=== PATIENT | female | born 1985 | race Caucasian/White ===

== ENCOUNTER 2017-02-01 17:39 | Emergency (ER) | payer OTHER ==
[~2017-02-01] VITALS: Ht 162.6 cm; Wt 71.9 kg
[2017-02-01 20:30] LABS: BASOPHIL % 1.6 % (0-2); PLATELET COUNT 307 x10^3mcL (130-400)
[2017-02-01 20:41] LABS: CALCIUM 9.2 mg/dL (8.5-10.1); CARBON DIOXIDE 25.5 mmol/L (21-32); CHLORIDE SERUM 101 mmol/L (98-107); CREATININE SERUM 0.7 mg/dL (0.6-1.0); GFR1 > 60 mL/min; GLUCOSE SERUM 98 mg/dL (74-106); POTASSIUM SERUM 3.5 mmol/L (3.5-5.1); SODIUM SERUM 138 mmol/L (136-145)
[2017-02-01 20:46] LABS: ALBUMIN 3.8 g/dL (3.4-5.0); ALKALINE PHOSPHATASE 106 U/L (46-116); ALT/SGPT 18 U/L (14-59); AST/SGOT 9 U/L (15-37); BILIRUBIN TOTAL 0.6 mg/dL (0.20-1.00)
[2017-02-01 20:48] LABS: TOTAL PROTEIN, SERUM 8.3 g/dL (6.4-8.2)
[2017-02-02 00:33] VITALS: BP 122/57
== END 2017-02-02 00:30 | disposition short-term general hospital (02) ==
LOC: ED 17:39
PROVIDERS: Emergency Medicine
DX: K12.2 Cellulitis and abscess of mouth (principal); J45.909 Unspecified asthma, uncomplicated
CPT/HCPCS: J0295; J2270; J2405; J3490; J7030

== ENCOUNTER 2017-09-26 07:25 | Emergency (ER) | payer OTHER ==
[~2017-09-26] VITALS: Ht 162.6 cm; Wt 74.4 kg
[2017-09-26 08:31] VITALS: BP 125/67
== END 2017-09-26 08:31 | disposition home or self-care (01) ==
LOC: ED 07:25
DX: N12 Tubulo-interstitial nephritis, not specified as acute or chronic (principal); J45.909 Unspecified asthma, uncomplicated
CPT/HCPCS: J1885

== ENCOUNTER 2018-03-01 15:10 | Emergency (ER) | payer OTHER ==
[~2018-03-01] VITALS: Ht 162.6 cm; Wt 70.1 kg
[2018-03-01 15:23] VITALS: Ht 162.6 cm; Wt 70.1 kg
[2018-03-01 18:18] VITALS: BP 118/70
== END 2018-03-01 18:20 | disposition home or self-care (01) ==
LOC: ED 15:10
DX: R10.10 Upper abdominal pain, unspecified (principal); J45.909 Unspecified asthma, uncomplicated; K21.9 Gastro-esophageal reflux disease without esophagitis; Z88.1 Allergy status to other antibiotic agents
CPT/HCPCS: J1885; Q0092; Q0162

== ENCOUNTER 2018-04-01 12:35 | Emergency (ER) | payer OTHER ==
[~2018-04-01] VITALS: Ht 162.6 cm; Wt 68.9 kg
[2018-04-01 12:39] VITALS: Ht 162.6 cm; Wt 68.9 kg
[2018-04-01 15:40] VITALS: BP 119/88
== END 2018-04-01 15:40 | disposition home or self-care (01) ==
LOC: ED 12:35
DX: R10.30 Lower abdominal pain, unspecified (principal); R10.32 Left lower quadrant pain; R11.0 Nausea; J45.909 Unspecified asthma, uncomplicated; K21.9 Gastro-esophageal reflux disease without esophagitis; Z88.1 Allergy status to other antibiotic agents

== ENCOUNTER 2018-05-04 05:51 | Emergency (ER) | payer OTHER ==
[~2018-05-04] VITALS: Ht 162.6 cm; Wt 66.7 kg
[2018-05-04 06:01] VITALS: Ht 162.6 cm; Wt 66.7 kg
[2018-05-04 06:53] LABS: BASOPHIL % 0.4 % (0-2); PLATELET COUNT 202 x10^3mcL (130-400)
[2018-05-04 07:02] LABS: CALCIUM 9.3 mg/dL (8.5-10.1); CARBON DIOXIDE 24.6 mmol/L (21-32); CHLORIDE SERUM 103 mmol/L (98-107); CREATININE SERUM 0.8 mg/dL (0.6-1.0); GFR1 > 60 mL/min; GLUCOSE SERUM 110 mg/dL (74-106); POTASSIUM SERUM 3.7 mmol/L (3.5-5.1); SODIUM SERUM 139 mmol/L (136-145)
[2018-05-04 07:06] LABS: ALBUMIN 4.1 g/dL (3.4-5.0); ALKALINE PHOSPHATASE 83 U/L (46-116); ALT/SGPT 22 U/L (14-59); AST/SGOT 16 U/L (15-37); BILIRUBIN TOTAL 0.45 mg/dL (0.20-1.00); LIPASE 84 IU/L (73-393); TOTAL PROTEIN, SERUM 7.9 g/dL (6.4-8.2)
[2018-05-04 07:28] LABS: UA SPECIFIC GRAVITY <=1.005 (1.005-1.035); microscopic required? YES; urine erythrocyte 2+ (NEGATIVE)
[2018-05-04 09:25] VITALS: BP 107/64
== END 2018-05-04 09:25 | disposition home or self-care (01) ==
LOC: ED 05:51
PROVIDERS: Emergency Medicine
DX: N39.0 Urinary tract infection, site not specified (principal); K21.9 Gastro-esophageal reflux disease without esophagitis; J45.909 Unspecified asthma, uncomplicated; Z88.1 Allergy status to other antibiotic agents
CPT/HCPCS: C9113; Q0092; Q0162

== ENCOUNTER 2018-05-06 09:23 | Emergency (ER) | payer OTHER ==
[~2018-05-06] VITALS: Ht 162.6 cm; Wt 61.2 kg
[2018-05-06 12:08] LABS: microscopic required? YES; urine erythrocyte 2+ (NEGATIVE)
[2018-05-06 12:51] LABS: BASOPHIL % 0.3 % (0-2); PLATELET COUNT 195 x10^3mcL (130-400); RED CELL DISTRIBUTION WIDTH 14.2 % (11.5-14.5)
[2018-05-06 14:06] LABS: CALCIUM 9.2 mg/dL (8.5-10.1); CARBON DIOXIDE 24.6 mmol/L (21-32); CHLORIDE SERUM 104 mmol/L (98-107); CREATININE SERUM 0.8 mg/dL (0.6-1.0); GFR1 > 60 mL/min; GLUCOSE SERUM 86 mg/dL (74-106); POTASSIUM SERUM 3.6 mmol/L (3.5-5.1); SODIUM SERUM 137 mmol/L (136-145)
[2018-05-06 14:19] LABS: ALBUMIN 4.3 g/dL (3.4-5.0); ALKALINE PHOSPHATASE 85 U/L (46-116); ALT/SGPT 23 U/L (14-59); AST/SGOT 14 U/L (15-37); BILIRUBIN TOTAL 0.49 mg/dL (0.20-1.00); C REACTIVE PROTEIN 0.3 mg/dL (<=0.9); TOTAL PROTEIN, SERUM 8.2 g/dL (6.4-8.2)
[2018-05-06 14:27] VITALS: BP 126/72
[2018-05-06 15:14] LABS: ERYTHROCYTE SED RATE 17 mm/hr (0-20)
== END 2018-05-06 16:33 | disposition home or self-care (01) ==
LOC: ED 09:23
PROVIDERS: Specialist
DX: N39.0 Urinary tract infection, site not specified (principal); R10.11 Right upper quadrant pain; J45.909 Unspecified asthma, uncomplicated; Z88.1 Allergy status to other antibiotic agents
CPT/HCPCS: 83880; J1885; J2405; J3010; J7030; Q0092; Q9967

== ENCOUNTER 2018-05-21 00:38 | Emergency (ER) | payer SELFPAY ==
[~2018-05-21] VITALS: Ht 162.6 cm; Wt 65.3 kg
[2018-05-21 00:49] VITALS: Ht 162.6 cm; Wt 65.3 kg
[2018-05-21 02:23] LABS: microscopic required? NO
[2018-05-21 02:38] LABS: UA SPECIFIC GRAVITY 1.015 (1.005-1.035); urine erythrocyte NEGATIVE (NEGATIVE)
[2018-05-21 05:51] VITALS: BP 109/78
== END 2018-05-21 00:52 | disposition home or self-care (01) ==
LOC: ED 00:38
PROVIDERS: Emergency Medicine
DX: N76.0 Acute vaginitis (principal); J45.909 Unspecified asthma, uncomplicated; Z88.1 Allergy status to other antibiotic agents
CPT/HCPCS: 87491; 87591; Q0162

== ENCOUNTER 2018-08-21 11:26 | Emergency (ER) | payer OTHER ==
[~2018-08-21] VITALS: Ht 162.6 cm; Wt 61.7 kg
[2018-08-21 11:34] VITALS: Ht 162.6 cm; Wt 61.7 kg
[2018-08-21 12:22] VITALS: BP 123/86
== END 2018-08-21 12:22 | disposition home or self-care (01) ==
LOC: ED 11:26
DX: R10.9 Unspecified abdominal pain (principal); R50.9 Fever, unspecified; R11.0 Nausea; J45.909 Unspecified asthma, uncomplicated; N83.209 Unspecified ovarian cyst, unspecified side; K21.9 Gastro-esophageal reflux disease without esophagitis; Z90.6 Acquired absence of other parts of urinary tract; Z88.1 Allergy status to other antibiotic agents
CPT/HCPCS: J1885; Q0162

== ENCOUNTER 2018-08-25 13:06 | Emergency (ER) | payer OTHER ==
[~2018-08-25] VITALS: Ht 162.6 cm; Wt 62.6 kg
[2018-08-25 13:18] VITALS: Ht 162.6 cm; Wt 62.6 kg
[2018-08-25 16:52] VITALS: BP 113/69
== END 2018-08-25 16:52 | disposition home or self-care (01) ==
LOC: ED 13:06
DX: K21.9 Gastro-esophageal reflux disease without esophagitis (principal); N39.0 Urinary tract infection, site not specified; J45.909 Unspecified asthma, uncomplicated; Z90.89 Acquired absence of other organs; Z88.1 Allergy status to other antibiotic agents
CPT/HCPCS: J0696; J1885; Q0162

== ENCOUNTER 2018-09-02 11:06 | Emergency (ER) | payer OTHER ==
[~2018-09-02] VITALS: Ht 162.6 cm; Wt 61.7 kg
[2018-09-02 11:10] VITALS: Ht 162.6 cm; Wt 61.7 kg
[2018-09-02 11:33] LABS: UA SPECIFIC GRAVITY 1.015 (1.005-1.035); microscopic required? YES; urine erythrocyte 3+ (NEGATIVE)
[2018-09-02 11:59] LABS: BASOPHIL % 0.3 % (0-2); PLATELET COUNT 201 x10^3mcL (130-400); RED CELL DISTRIBUTION WIDTH 13.6 % (11.5-14.5)
[2018-09-02 12:12] LABS: CALCIUM 8.8 mg/dL (8.5-10.1); CARBON DIOXIDE 29.4 mmol/L (21-32); CHLORIDE SERUM 105 mmol/L (98-107); CREATININE SERUM 0.7 mg/dL (0.6-1.0); GFR1 > 60 mL/min; GLUCOSE SERUM 90 mg/dL (74-106); POTASSIUM SERUM 3.7 mmol/L (3.5-5.1); SODIUM SERUM 140 mmol/L (136-145)
[2018-09-02 12:16] LABS: ALBUMIN 4.1 g/dL (3.4-5.0); ALKALINE PHOSPHATASE 87 U/L (46-116); ALT/SGPT 14 U/L (14-59); AMYLASE 40 U/L (25-115); AST/SGOT 7 U/L (15-37); BILIRUBIN TOTAL 0.59 mg/dL (0.20-1.00); LIPASE 70 IU/L (73-393)
[2018-09-02 12:19] LABS: TOTAL PROTEIN, SERUM 8.4 g/dL (6.4-8.2)
[2018-09-02 12:20] LABS: AMPHETAMINE QUAL UR NONE DETECTED (See below)
[2018-09-02 15:14] VITALS: BP 113/86
== END 2018-09-02 15:12 | disposition home or self-care (01) ==
LOC: ED 11:06
PROVIDERS: Emergency Medicine
DX: M54.6 Pain in thoracic spine (principal); J45.909 Unspecified asthma, uncomplicated; K21.9 Gastro-esophageal reflux disease without esophagitis; Z88.1 Allergy status to other antibiotic agents; Z98.890 Other specified postprocedural states
CPT/HCPCS: 36415; 36600; 85378

== ENCOUNTER 2018-09-23 07:25 | Emergency (ER) | payer OTHER ==
[~2018-09-23] VITALS: Ht 162.6 cm; Wt 62.6 kg
[2018-09-23 07:33] VITALS: Ht 162.6 cm; Wt 62.6 kg
[2018-09-23 09:18] LABS: microscopic required? NO
[2018-09-23 09:51] LABS: UA SPECIFIC GRAVITY >=1.030 (1.005-1.035); urine erythrocyte NEGATIVE (NEGATIVE)
[2018-09-23 10:23] VITALS: BP 112/82
== END 2018-09-23 10:23 | disposition home or self-care (01) ==
LOC: ED 07:25
PROVIDERS: Emergency Medicine
DX: N80.9 Endometriosis, unspecified (principal); J45.909 Unspecified asthma, uncomplicated; N83.209 Unspecified ovarian cyst, unspecified side; K21.9 Gastro-esophageal reflux disease without esophagitis; Z88.1 Allergy status to other antibiotic agents
CPT/HCPCS: 87491; 87591; Q0162

== ENCOUNTER 2018-11-27 09:26 | Emergency (ER) | payer OTHER ==
[~2018-11-27] VITALS: Ht 162.6 cm; Wt 62.1 kg
[2018-11-27 09:28] VITALS: Ht 162.6 cm; Wt 62.1 kg
[2018-11-27 10:22] LABS: BASOPHIL % 0.6 % (0-2); PLATELET COUNT 180 x10^3mcL (130-400); RED CELL DISTRIBUTION WIDTH 13.5 % (11.5-14.5)
[2018-11-27 10:28] LABS: CALCIUM 8.9 mg/dL (8.5-10.1); CARBON DIOXIDE 27.9 mmol/L (21-32); CHLORIDE SERUM 104 mmol/L (98-107); CREATININE SERUM 0.7 mg/dL (0.6-1.0); GFR1 > 60 mL/min; GLUCOSE SERUM 94 mg/dL (74-106); POTASSIUM SERUM 4.1 mmol/L (3.5-5.1); SODIUM SERUM 138 mmol/L (136-145)
[2018-11-27 10:41] LABS: FREE T4 0.97 ng/dL (0.76-1.46); FREE THYROXINE INDEX 2.6 ug/dL (1.4-4.5); T4(THYROXINE) 8.5 ug/dL (4.7-13.3)
[2018-11-27 10:43] LABS: ALBUMIN 3.7 g/dL (3.4-5.0); ALKALINE PHOSPHATASE 74 U/L (46-116); ALT/SGPT 15 U/L (14-59); AST/SGOT 13 U/L (15-37); BILIRUBIN TOTAL 0.35 mg/dL (0.20-1.00); TOTAL PROTEIN, SERUM 7.6 g/dL (6.4-8.2)
[2018-11-27 12:37] VITALS: BP 121/77
[2018-11-27 13:46] LABS: T3 TOTAL 1.12 ng/mL
== END 2018-11-27 12:37 | disposition home or self-care (01) ==
LOC: ED 09:26
PROVIDERS: Specialist
DX: E04.1 Nontoxic single thyroid nodule (principal); J45.909 Unspecified asthma, uncomplicated; K21.9 Gastro-esophageal reflux disease without esophagitis; Z98.890 Other specified postprocedural states; Z88.8 Allergy status to other drugs, medicaments and biological substances
CPT/HCPCS: 36415; 84439

== ENCOUNTER 2018-12-25 07:34 | Emergency (ER) | payer OTHER ==
[~2018-12-25] VITALS: Ht 162.6 cm; Wt 62.3 kg
[2018-12-25 07:48] VITALS: Ht 162.6 cm; Wt 62.3 kg
[2018-12-25 11:43] LABS: BASOPHIL % 0.3 % (0-2); PLATELET COUNT 207 x10^3mcL (130-400); RED CELL DISTRIBUTION WIDTH 13.6 % (11.5-14.5)
[2018-12-25 11:52] LABS: CALCIUM 9.1 mg/dL (8.5-10.1); CHLORIDE SERUM 106 mmol/L (98-107); CREATININE SERUM 0.6 mg/dL (0.6-1.0); GFR1 > 60 mL/min; GLUCOSE SERUM 97 mg/dL (74-106); POTASSIUM SERUM 4.1 mmol/L (3.5-5.1); SODIUM SERUM 142 mmol/L (136-145)
[2018-12-25 11:57] LABS: ALBUMIN 3.9 g/dL (3.4-5.0); ALKALINE PHOSPHATASE 79 U/L (46-116); ALT/SGPT 16 U/L (14-59); AST/SGOT 11 U/L (15-37)
[2018-12-25 15:16] VITALS: BP 109/61
== END 2018-12-25 15:16 | disposition home or self-care (01) ==
LOC: ED 07:34
PROVIDERS: Specialist
DX: K59.00 Constipation, unspecified (principal); Z88.1 Allergy status to other antibiotic agents; K21.9 Gastro-esophageal reflux disease without esophagitis; Z90.89 Acquired absence of other organs
CPT/HCPCS: J2405; J3010; Q0162

== ENCOUNTER 2019-01-15 03:51 | Emergency (ER) | payer OTHER ==
[~2019-01-15] VITALS: Ht 162.6 cm; Wt 60.8 kg
[2019-01-15 03:56] VITALS: Ht 162.6 cm; Wt 60.8 kg
[2019-01-15 04:28] LABS: BASOPHIL % 0.2 % (0-2); PLATELET COUNT 202 x10^3mcL (130-400); RED CELL DISTRIBUTION WIDTH 13.4 % (11.5-14.5)
[2019-01-15 04:38] LABS: CALCIUM 8.5 mg/dL (8.5-10.1); CARBON DIOXIDE 30.8 mmol/L (21-32); CHLORIDE SERUM 102 mmol/L (98-107); CREATININE SERUM 0.8 mg/dL (0.6-1.0); GFR1 > 60 mL/min; GLUCOSE SERUM 95 mg/dL (74-106); POTASSIUM SERUM 3.3 mmol/L (3.5-5.1); SODIUM SERUM 138 mmol/L (136-145)
[2019-01-15 04:42] LABS: ALBUMIN 4.1 g/dL (3.4-5.0); ALKALINE PHOSPHATASE 86 U/L (46-116); ALT/SGPT 18 U/L (14-59); AST/SGOT 10 U/L (15-37); BILIRUBIN TOTAL 0.47 mg/dL (0.20-1.00); C REACTIVE PROTEIN 0.5 mg/dL (<=0.9); TOTAL PROTEIN, SERUM 7.9 g/dL (6.4-8.2)
[2019-01-15 04:45] LABS: UA SPECIFIC GRAVITY >=1.030 (1.005-1.035); microscopic required? YES; urine erythrocyte NEGATIVE (NEGATIVE)
[2019-01-15 05:15] LABS: ERYTHROCYTE SED RATE 18 mm/hr (0-20)
[2019-01-15 06:27] VITALS: BP 110/62
== END 2019-01-15 06:27 | disposition home or self-care (01) ==
LOC: ED 03:51
PROVIDERS: Specialist
DX: N30.10 Interstitial cystitis (chronic) without hematuria (principal); J45.909 Unspecified asthma, uncomplicated; K21.9 Gastro-esophageal reflux disease without esophagitis; Z88.1 Allergy status to other antibiotic agents
CPT/HCPCS: J0696; J1885; J2405; J7030

== ENCOUNTER 2019-02-12 14:58 | Emergency (ER) | payer OTHER ==
[2019-02-12 15:05] VITALS: Ht 162.6 cm
[2019-02-12 16:38] LABS: BASOPHIL % 0.3 % (0-2); PLATELET COUNT 190 x10^3mcL (130-400); RED CELL DISTRIBUTION WIDTH 13.1 % (11.5-14.5)
[2019-02-12 16:49] LABS: CALCIUM 8.9 mg/dL (8.5-10.1); CARBON DIOXIDE 27.7 mmol/L (21-32); CHLORIDE SERUM 103 mmol/L (98-107); CREATININE SERUM 0.7 mg/dL (0.6-1.0); GFR1 > 60 mL/min; GLUCOSE SERUM 91 mg/dL (74-106); POTASSIUM SERUM 3.9 mmol/L (3.5-5.1); SODIUM SERUM 140 mmol/L (136-145)
[2019-02-12 16:53] LABS: ALKALINE PHOSPHATASE 82 U/L (46-116); ALT/SGPT 16 U/L (14-59); AST/SGOT 11 U/L (15-37); BILIRUBIN TOTAL 0.5 mg/dL (0.20-1.00); LIPASE 77 IU/L (73-393); TOTAL PROTEIN, SERUM 7.9 g/dL (6.4-8.2)
[2019-02-12 18:44] VITALS: BP 143/76
== END 2019-02-12 19:07 | disposition home or self-care (01) ==
LOC: ED 14:58
PROVIDERS: Emergency Medicine
DX: K29.00 Acute gastritis without bleeding (principal); J45.901 Unspecified asthma with (acute) exacerbation; K21.9 Gastro-esophageal reflux disease without esophagitis; Z88.1 Allergy status to other antibiotic agents; Z90.49 Acquired absence of other specified parts of digestive tract
CPT/HCPCS: J2270; J2405; J3010; J7030; Q0092

== ENCOUNTER 2019-06-18 03:14 | Emergency (ER) | payer OTHER ==
[~2019-06-18] VITALS: Ht 162.6 cm; Wt 60.9 kg
[2019-06-18 03:21] VITALS: Ht 162.6 cm; Wt 60.9 kg
[2019-06-18 07:55] VITALS: BP 121/88
== END 2019-06-18 07:55 | disposition home or self-care (01) ==
LOC: ED 03:14
DX: S29.012A Strain of muscle and tendon of back wall of thorax, initial encounter (principal); J45.909 Unspecified asthma, uncomplicated; K21.9 Gastro-esophageal reflux disease without esophagitis; Z88.1 Allergy status to other antibiotic agents; X58.XXXA Exposure to other specified factors, initial encounter; Y93.89 Activity, other specified; Y92.89 Other specified places as the place of occurrence of the external cause; Y99.8 Other external cause status
CPT/HCPCS: J1885

== ENCOUNTER 2019-07-05 13:03 | Inpatient (IN) | payer OTHER ==
[~2019-07-05] VITALS: Ht 162.6 cm; Wt 63.0 kg
[2019-07-05 13:06] VITALS: Ht 162.6 cm; Wt 63.0 kg
[2019-07-05 14:10] LABS: BASOPHIL % 0.3 % (0-2); PLATELET COUNT 229 x10^3mcL (130-400); RED CELL DISTRIBUTION WIDTH 13.9 % (11.5-14.5)
--- NOTE | 2019-07-05 14:11 | NUR ---
PT IN ED FOR RIGHT FLANK PAIN WITH DYSURIA X4 DAYS. STS WENT TO UC BUT WAS TOLD TO COME TO ED. PT AAO4, RESP E/U, NO DISTRESS. FEMALE VISITOR AT BEDSIDE. PT STS FEELS SENSATION OF INCOMPLETE BLADDER EVERYTIME SHE VOIDS.
[2019-07-05 14:18] LABS: UA SPECIFIC GRAVITY 1.015 (1.005-1.035); microscopic required? YES; urine erythrocyte 3+ (NEGATIVE)
[2019-07-05 14:23] LABS: CALCIUM 8.7 mg/dL (8.5-10.1); CARBON DIOXIDE 29.6 mmol/L (21-32); CHLORIDE SERUM 103 mmol/L (98-107); CREATININE SERUM 0.8 mg/dL (0.6-1.0); GFR1 > 60 mL/min; GLUCOSE SERUM 89 mg/dL (74-106); POTASSIUM SERUM 3.6 mmol/L (3.5-5.1); SODIUM SERUM 140 mmol/L (136-145)
[2019-07-05 14:28] LABS: ALKALINE PHOSPHATASE 92 U/L (46-116); ALT/SGPT 16 U/L (14-59); AST/SGOT 14 U/L (15-37); BILIRUBIN TOTAL 0.5 mg/dL (0.20-1.00); TOTAL PROTEIN, SERUM 8.2 g/dL (6.4-8.2)
--- NOTE | 2019-07-05 15:20 | NUR ---
PT IN [place] IN POSITION OF COMOFORT, RESP E/U, NO DISTRESS.
[2019-07-05] MEDS ORDERED: PROTONIX40 MG PO (16:32)
--- NOTE | 2019-07-05 16:39 | NUR ---
CALLED X3 TO GIVE REPORT; NO ANSWER FROM NURSE. SPOKE TO MT, STS WILL TELL ROWDY TO CALL ED.
--- NOTE | 2019-07-05 16:47 | NUR ---
REPORT GIVEN TO RENEE RENO TO ASSUME CARE.
--- NOTE | 2019-07-05 17:02 | NUR ---
RECEIVED PT [employer]IA [employer] FROM E/D, ACCOMPANIED BY TRANSPORTER. PT A/A/O X 4, CALM, COOPERATIVE; C/O INTERMITTENT THROBBING H/A 03/27; WEARS GLASSES (W/ PT). AMBULATORY, NO GAIT OR BALANCE IMPAIRMENT NOTED WHEN WALKING FROM [facility] TO BED. DENIES CHEST PAIN OR DISCOMFORT AT THIS TIME. NO ACUTE RESPIRATORY DISTRESS NOTED. POOR APPETITE > 3 DAYS. VOIDS FREELY, C/O INTERMITTENT SHARP L FLANK PAIN 03/27, EXACERBATED BY FULL BLADDER, RELIEVED BY PAIN MEDICATIONS, DSYURIA (BURNING ON URINATION). IV SITE LAC 20G, CDI. ORIENTED PT TO ROOM, BED CONTROLS, CALL LIGHT SYSTEM. SIDE RAILS UP X 2, BED IN LOW POSITION. WILL ENDORSE TO RENEE RENO.
[2019-07-05 17:37] VITALS: BP 133/85
--- NOTE | 2019-07-05 18:29 | NUR ---
PATIENT RESTING COMFORTABLY IN BED AT THIS TIME. NO APPARENT DISTRESS OR DISCOMFORT NOTED. IV PATENT AND INTACT TO LAC INFUSING NS 80MLHR. ALL QUESTIONS AND CONCERNS ADDRESSED. ALL NEEDS ATTENDED TO. SAFETY PRECAUTIONS MAINTAINED. WILL ENDORSE ALL CARE TO HOMEWORKER NURSE
--- NOTE | 2019-07-05 19:25 | NUR ---
RECIEVED PT RESTING IN BED WITH NO ACUTE DISTRESS AT THIS TIME, PT REPORTS SHE FEELS SLIGHT CHILLS BUT THEYRE IMPROVING, ASSESSMENT PERFORMED AT THIS TIME, PT IS A/OX4 WITH NO COMPLAINTS OF BRYANT OR DIZZINESS AT THIS TIME, PT DENIES PAIN OR SOB, PT HAS IV TO THE LAC 20G INFUSING NS AT 80 ML PER HOUR, ALL PT NEEDS ATTENDED TO AT THIS TIME, SAFETY PRECAUTIONS IN PLACE, WILL CONTINUE TO MONITOR
[2019-07-05 21:12] VITALS: BP 111/77
--- NOTE | 2019-07-05 22:20 | NUR ---
PT RESTING IN BED WITH POUSE AT BEDSIDE, NO ACUTE DISTRESS AT THIS TIME, PT DENIES PAIN OR SOB, ALL SAFETY PRECAUTIONS IN PLACE, WILL CONTINUE TO MONITOR
--- NOTE | 2019-07-06 00:31 | NUR ---
PT RESTING IN BED WATCHING TV WITH SPOUSE AT BEDSIDE, PT DENIES PAIN OR SOB AT THIS TIME, ALL NEEDS ATTENDED TO WILL CONTINUE TO MONITOR
--- NOTE | 2019-07-06 03:27 | NUR ---
PT RESTING IN BED WITH PARENT AT BEDSIDE, NO ACUTE DISTRESS AT THIS TIME, NO SOB AT THIS TIME, RESPIRATIONS EVEN AND UNLABORED SAFETY PECAUTIONS IN PLACE, WILL CONTINUE TO MONITOR
--- NOTE | 2019-07-06 03:41 | NUR ---
PT RESTING IN BED WITH SPUSE AT BEDSIDE, PT DENIES PAIN AT THIS TIME, SAFETY PRECAUTIONS IN PLACE WILL CONTINUE TO MONITOR
--- NOTE | 2019-07-06 05:30 | NUR ---
PT RESTED COMFORTABLY AND STATED THAT SHE HAD NO MORE CHILLS THROUGH THE NIGHT, HER TEMP REMAINED STABLE, PT DENIED ANY PAIN OR DISCOMFORT DURING SHIFT, ALL NEEDS ATTENDED TO, SAFETY PRECAUTIONS REMAINED IN PLACE THROUGH SHIFT, WILL CONITINUE TO MONITOR AND ENDORSE CARE
[2019-07-06 05:58] VITALS: BP 104/61
--- NOTE | 2019-07-06 07:05 | NUR ---
RECEIVED BEDSIDE REPORT FROM SALES REPRESENTATIVE [employer] NURSE AT THIS TIME. PATIENT RESTING COMFORTABLY IN BED. NO APPARENT DISTRESS OR DISCOMFORT NOTED. BREATHING EVEN AND UNLABORED. NO REPSIRATORY DISTRESS OR DISCOMFORT NOTED. PATIENT DENIES CHEST PAIN/PRESSURE AT THIS TIME. IV PATENT AND INTACT. ALL QUESTIONS AND CONCERNS ADDRESSED. ALL NEEDS ATTENDED TO. PATIENT STATES SHE STARTED HER MENSTRUAL CYCLE, PADS PROVIDED. WILL CONTINUE TO MONITOR
[2019-07-06 07:21] LABS: ALKALINE PHOSPHATASE 75 U/L (46-116); ALT/SGPT 14 U/L (14-59); AST/SGOT 11 U/L (15-37); BILIRUBIN TOTAL 0.6 mg/dL (0.20-1.00); CALCIUM 7.7 mg/dL (8.5-10.1); CARBON DIOXIDE 28.2 mmol/L (21-32); CHLORIDE SERUM 107 mmol/L (98-107); CREATININE SERUM 0.7 mg/dL (0.6-1.0); GFR1 > 60 mL/min; GLUCOSE SERUM 81 mg/dL (74-106); POTASSIUM SERUM 3.8 mmol/L (3.5-5.1); SODIUM SERUM 141 mmol/L (136-145); TOTAL PROTEIN, SERUM 6.8 g/dL (6.4-8.2)
[2019-07-06 07:24] LABS: ALBUMIN 3.2 g/dL (3.4-5.0)
[2019-07-06 07:45] LABS: BASOPHIL % 0.2 % (0-2); PLATELET COUNT 200 x10^3mcL (130-400); RED CELL DISTRIBUTION WIDTH 13.8 % (11.5-14.5)
[2019-07-06 08:45] VITALS: BP 106/61
--- NOTE | 2019-07-06 10:02 | NUR ---
PATIENT REFUSED HEPARIN AT THIS TIME. REPORTED TO DR CHAPMAN. ALL NEEDS ATTENDED TO. WILL CONTINUE TO MONITOR
[2019-07-06] MEDS ORDERED: BACTRIM DS1 TAB PO (10:45)
--- NOTE | 2019-07-06 10:46 | NUR ---
SPOKE TO DR CHAPMAN REGARDING PATIENT DISCHARGE AT THIS TIME. PER DR CHAPMAN OK TO D/C PATIENT AFTER ROCEPHIN DOSE AT 1400. ALL NEEDS ATTENDED TO. WILL CONTINUE TO MONITOR
[2019-07-06 11:54] VITALS: BP 106/61
--- NOTE | 2019-07-06 13:45 | NUR ---
PATIENT STABLE TO BE DISCHARGED TO HOME. DISCHARGE INSTRUCTIONS GIVEN WELL EDUCATION. INSTRUCTED PATIENT TO FOLLOW UP WITH PCP. PATIENT VERBALIZES UNDERSTANDING. IV REMOVED WITH CATH INTACT. ID BANDS REMOVED. ALL BELONGINGS WITH PATIENT. ALL QUESTIONS AND CONCERNS ADDRESSED. ALL NEEDS ATTENDED TO. ALL BELONGINGS WITH PATIENT. PATIENT ESCORTED DOWN TO THE LOBBY BY NARA AT THIS TIME
== END 2019-07-06 13:45 | disposition home or self-care (01) | DRG 463 ==
LOC: ED 13:03 → MU 16:00
PROVIDERS: Emergency Medicine; ADMIT Internal Medicine
DX: N39.0 Urinary tract infection, site not specified (principal); E03.9 Hypothyroidism, unspecified; J45.20 Mild intermittent asthma, uncomplicated; R33.9 Retention of urine, unspecified; K21.9 Gastro-esophageal reflux disease without esophagitis; M79.7 Fibromyalgia; K27.9 Peptic ulcer, site unspecified, unspecified as acute or chronic, without hemorrhage or perforation; Z88.8 Allergy status to other drugs, medicaments and biological substances; J45.909 Unspecified asthma, uncomplicated
CPT/HCPCS: 76770; G0378; J0696; J1644; J7030; J7060; Q0092

== ENCOUNTER 2019-07-22 09:45 | Emergency (ER) | payer OTHER ==
[~2019-07-22] VITALS: Ht 162.6 cm; Wt 61.7 kg
[~2019-07-22 09:45] MED LIST: BACTRIM DS1 TAB PO; PROTONIX40 MG PO
[2019-07-22 09:51] VITALS: Ht 162.6 cm; Wt 61.7 kg
[2019-07-22 10:06] LABS: microscopic required? YES; urine erythrocyte NEGATIVE (NEGATIVE)
[2019-07-22 11:06] LABS: BASOPHIL % 0.4 % (0-2); PLATELET COUNT 228 x10^3mcL (130-400)
[2019-07-22 11:27] LABS: CALCIUM 8.5 mg/dL (8.5-10.1); CARBON DIOXIDE 24.9 mmol/L (21-32); CHLORIDE SERUM 105 mmol/L (98-107); CREATININE SERUM 0.7 mg/dL (0.6-1.0); GFR1 > 60 mL/min; GLUCOSE SERUM 95 mg/dL (74-106); POTASSIUM SERUM 3.7 mmol/L (3.5-5.1); SODIUM SERUM 138 mmol/L (136-145)
[2019-07-22 11:32] LABS: ALKALINE PHOSPHATASE 87 U/L (46-116); ALT/SGPT 10 U/L (14-59); AST/SGOT 11 U/L (15-37); BILIRUBIN TOTAL 0.44 mg/dL (0.20-1.00)
[2019-07-22 11:45] VITALS: BP 113/75
== END 2019-07-22 12:27 | disposition home or self-care (01) ==
LOC: ED 09:45
PROVIDERS: Emergency Medicine
DX: N12 Tubulo-interstitial nephritis, not specified as acute or chronic (principal); J45.909 Unspecified asthma, uncomplicated; K21.9 Gastro-esophageal reflux disease without esophagitis; M79.7 Fibromyalgia; Z98.890 Other specified postprocedural states; Z88.1 Allergy status to other antibiotic agents
CPT/HCPCS: J0696; J1885; J2405; J7030

== ENCOUNTER 2019-08-13 17:55 | Emergency (ER) | payer OTHER ==
[~2019-08-13] VITALS: Ht 162.6 cm; Wt 61.7 kg
[2019-08-13 18:02] VITALS: Ht 162.6 cm; Wt 61.7 kg
[2019-08-13 18:38] LABS: UA SPECIFIC GRAVITY 1.025 (1.005-1.035); microscopic required? YES; urine erythrocyte TRACE (NEGATIVE)
[2019-08-13 18:45] LABS: BASOPHIL % 0.3 % (0-2); PLATELET COUNT 191 x10^3mcL (130-400); RED CELL DISTRIBUTION WIDTH 14.2 % (11.5-14.5)
[2019-08-13 18:58] LABS: CALCIUM 8.6 mg/dL (8.5-10.1); CARBON DIOXIDE 27.2 mmol/L (21-32); CHLORIDE SERUM 105 mmol/L (98-107); CREATININE SERUM 0.7 mg/dL (0.6-1.0); GFR1 > 60 mL/min; GLUCOSE SERUM 92 mg/dL (74-106); POTASSIUM SERUM 3.8 mmol/L (3.5-5.1); SODIUM SERUM 140 mmol/L (136-145)
[2019-08-13 19:38] VITALS: BP 111/77
== END 2019-08-13 19:38 | disposition home or self-care (01) ==
LOC: ED 17:55
PROVIDERS: Emergency Medicine
DX: N39.0 Urinary tract infection, site not specified (principal); J45.909 Unspecified asthma, uncomplicated; K21.9 Gastro-esophageal reflux disease without esophagitis; Z98.890 Other specified postprocedural states
CPT/HCPCS: 36415

== ENCOUNTER 2019-12-05 01:15 | Inpatient (IN) | payer OTHER ==
[~2019-12-05] VITALS: Ht 165.1 cm; Wt 60.3 kg
[2019-12-05 01:24] VITALS: Ht 165.1 cm; Wt 60.3 kg
[2019-12-05 02:17] LABS: BASOPHIL % 1.4 % (0-2); PLATELET COUNT 203 x10^3mcL (130-400); RED CELL DISTRIBUTION WIDTH 12.9 % (11.5-14.5)
[2019-12-05 02:55] LABS: ALKALINE PHOSPHATASE 84 U/L (46-116); ALT/SGPT 13 U/L (14-59); AST/SGOT 13 U/L (15-37); BILIRUBIN TOTAL 0.23 mg/dL (0.20-1.00); CALCIUM 9.2 mg/dL (8.5-10.1); CHLORIDE SERUM 106 mmol/L (98-107); CREATININE SERUM 0.7 mg/dL (0.6-1.0); GFR1 > 60 mL/min; GLUCOSE SERUM 100 mg/dL (74-106); POTASSIUM SERUM 3.8 mmol/L (3.5-5.1); SODIUM SERUM 142 mmol/L (136-145); TOTAL PROTEIN, SERUM 8.1 g/dL (6.4-8.2)
[2019-12-05] MEDS ORDERED: PROTONIX20 MG PO (04:42)
[2019-12-05 05:45] VITALS: BP 125/79
[2019-12-05 08:48] VITALS: BP 120/71
[2019-12-05 09:35] LABS: microscopic required? YES; urine erythrocyte 3+ (NEGATIVE)
[2019-12-05 13:08] VITALS: BP 101/64
[2019-12-05 16:56] VITALS: BP 112/72
[2019-12-05 20:23] VITALS: BP 103/73
[2019-12-06 05:31] VITALS: BP 106/68
[2019-12-06 06:54] LABS: CALCIUM 8.2 mg/dL (8.5-10.1); CARBON DIOXIDE 26.8 mmol/L (21-32); CHLORIDE SERUM 108 mmol/L (98-107); CREATININE SERUM 0.6 mg/dL (0.6-1.0); GFR1 > 60 mL/min; GLUCOSE SERUM 89 mg/dL (74-106); POTASSIUM SERUM 3.8 mmol/L (3.5-5.1); SODIUM SERUM 142 mmol/L (136-145)
[2019-12-06 09:09] VITALS: BP 111/77
[2019-12-06] MEDS ORDERED: AUGMENTIN 875-1 EACH PO (10:28)
[2019-12-06 11:15] VITALS: BP 111/77
== END 2019-12-06 11:59 | disposition home or self-care (01) | DRG 463 ==
LOC: ED 01:15 → DU 04:46 → MU 12-06 08:52
PROVIDERS: Emergency Medicine; ADMIT Internal Medicine Pulmonary Disease
DX: N39.0 Urinary tract infection, site not specified (principal); B96.29 Other Escherichia coli [E. coli] as the cause of diseases classified elsewhere; J45.909 Unspecified asthma, uncomplicated; Z88.8 Allergy status to other drugs, medicaments and biological substances; M79.7 Fibromyalgia; K21.9 Gastro-esophageal reflux disease without esophagitis; R00.0 Tachycardia, unspecified
CPT/HCPCS: G0378; J1200; J1650; J2185; J2405; J3490; J7030

== ENCOUNTER 2019-12-26 20:26 | Emergency (ER) | payer OTHER ==
[~2019-12-26] VITALS: Ht 160 cm; Wt 62.1 kg
[~2019-12-26 20:26] MED LIST changes: +AUGMENTIN 875-1 EACH PO; +PROTONIX20 MG PO
[2019-12-26 20:34] VITALS: Ht 160 cm; Wt 62.1 kg
[2019-12-26 21:09] LABS: ALBUMIN 3.9 g/dL (3.4-5.0); ALKALINE PHOSPHATASE 93 U/L (46-116); ALT/SGPT 17 U/L (14-59); AST/SGOT 9 U/L (15-37); BILIRUBIN TOTAL 0.23 mg/dL (0.20-1.00); CARBON DIOXIDE 27.5 mmol/L (21-32); CHLORIDE SERUM 104 mmol/L (98-107); GLUCOSE SERUM 99 mg/dL (74-106); POTASSIUM SERUM 3.2 mmol/L (3.5-5.1); SODIUM SERUM 140 mmol/L (136-145)
[2019-12-26 21:17] LABS: CREATININE SERUM 0.7 mg/dL (0.6-1.0); GFR1 > 60 mL/min; LIPASE 85 IU/L (73-393)
[2019-12-26 21:20] LABS: BASOPHIL % 0.3 % (0-2); PLATELET COUNT 228 x10^3mcL (130-400); RED CELL DISTRIBUTION WIDTH 13.6 % (11.5-14.5)
[2019-12-26 22:42] VITALS: BP 112/78
== END 2019-12-26 22:42 | disposition home or self-care (01) ==
LOC: ED 20:26
PROVIDERS: Emergency Medicine
DX: K29.70 Gastritis, unspecified, without bleeding (principal); J45.909 Unspecified asthma, uncomplicated; Z88.1 Allergy status to other antibiotic agents
CPT/HCPCS: J2270; J2405; J7030; Q0092

== ENCOUNTER 2020-05-31 22:35 | Emergency (ER) | payer OTHER ==
[~2020-05-31] VITALS: Ht 165.1 cm; Wt 61.2 kg
[2020-05-31 22:42] VITALS: Ht 165.1 cm; Wt 61.2 kg
[2020-06-01 00:22] LABS: microscopic required? NO
[2020-06-01 00:26] LABS: urine erythrocyte NEGATIVE (NEGATIVE)
[2020-06-01 01:26] VITALS: BP 128/76
== END 2020-06-01 01:26 | disposition home or self-care (01) ==
LOC: ED 22:35
PROVIDERS: Emergency Medicine
DX: R30.0 Dysuria (principal); R10.9 Unspecified abdominal pain; J45.909 Unspecified asthma, uncomplicated; K21.9 Gastro-esophageal reflux disease without esophagitis; Z98.890 Other specified postprocedural states; Z88.1 Allergy status to other antibiotic agents